=== PATIENT | male | born 1940 | race Caucasian/White ===

== ENCOUNTER 2020-10-06 18:57 | Inpatient (IN) | payer MEDICARE, OTHER ==
[~2020-10-06] VITALS: Ht 170.2 cm; Wt 76.2 kg
--- NOTE | 2020-10-06 19:10 | NUR ---
BLOOD COLLECTED AND SENT TO LAB
--- NOTE | 2020-10-06 19:10 | NUR ---
PT BIBRA FROM HOME C/O NEAR SYNCOPAL EPISODE WHILE EATING DINNER. PER EMS, +ORTHOSTATIC. PT AAOX3, VSS, RESPIRATIONS EVEN AND UNLABORED ON RA W/ NAD NOTED. PT CONNECTED TO THE SUBGRADE ROLLER OPERATOR AND POX
[2020-10-06] MEDS ORDERED: IV NS 0.9% 1,000 ML BAG IV ONE (19:30)
[2020-10-06 19:44] LABS: BASOPHILS % (AUTO) 1.3 % (0.0-2.0); EOSINOPHILS % (AUTO) 4.7 % (0.0-6.0); HEMATOCRIT 35 % (39-51); LYMPHOCYTES # (AUTO) 0.6 /CMM (0.8-4.8); LYMPHOCYTES % (AUTO) 16.3 % (20.0-44.0); MEAN CORPUSCULAR HGB CONC 32 g/dl (31.0-36.0); MEAN CORPUSCULAR VOLUME 84 fL (80-96); MONOCYTES # (AUTO) 0.3 /CMM (0.1-1.30); MONOCYTES % (AUTO) 7.7 % (2.0-12.0); NEUTROPHILS # (AUTO) 2.5 /CMM (1.8-8.9); PLATELET COUNT (AUTO) 141 /CMM (150-450); RED BLOOD CELL COUNT(AUTO) 4.15 MIL/uL (4.5-6.0); WHITE BLOOD COUNT (AUTO) 3.6 K/uL (4.3-11.0)
[2020-10-06 19:51] LABS: CALCIUM, SERUM 8.5 mg/dL (8.5-10.1); CARBON DIOXIDE 31 mmol/L (21-32); CHLORIDE 104 mmol/L (98-107); CREATININE 1.4 mg/dL (0.6-1.3); GLUCOSE 126 mg/dL (74-106); POTASSIUM 3.5 mmol/L (3.5-5.1); SODIUM SERUM 141 mmol/L (136-145); UREA NITROGEN, BLOOD 27 mg/dL (7-18)
[2020-10-06 19:57] LABS: ALANINE AMINOTRANSFERASE 26 U/L (12-78); ALBUMIN 3.5 g/dL (3.4-5.0); ALKALINE PHOSPHATASE 52 U/L (46-116); ASPARTATE AMINOTRANSFERASE 21 U/L (15-37); BILIRUBIN,DIRECT 0.2 mg/dL (0.0-0.2); BILIRUBIN,TOTAL 0.4 mg/dL (0.2-1.0); TOTAL PROTEIN, SERUM 6.6 g/dL (6.4-8.2)
--- NOTE | 2020-10-06 20:10 | NUR ---
CALLED LAB FOR COVID SWAB
--- NOTE | 2020-10-06 20:25 | NUR ---
DR REZA AT BEDSIDE
--- NOTE | 2020-10-06 20:48 | NUR ---
[facility] CALLED FOR CODE STEMI. FACESHEET AND CLINICALS FAXED.
--- NOTE | 2020-10-06 20:50 | NUR ---
COVID SWAB SENT TO LAB
[2020-10-06] MEDS ORDERED: ASPIRIN 81 MG TAB.CHEW ONE (20:57)
--- NOTE | 2020-10-06 20:57 | NUR ---
CALL BACK FROM [facility]. PER DR LEON NOT STEMI.
[2020-10-06] MEDS ORDERED: ASPIRIN 81 MG TAB.CHEW PO ONE (21:00)
--- NOTE | 2020-10-06 21:14 | NUR ---
rechecked pt wt via bed scale 77.5 kg
--- NOTE | 2020-10-06 21:15 | NUR ---
[facility]. NOT STEMI PER DR HOYOS.
--- NOTE | 2020-10-06 21:20 | NUR ---
PT'S DAUGHTER DAVELEONARDO
[2020-10-06] MEDS ORDERED: ZOLPIDEM TARTRATE 5 MG TABLET PO PRN (22:00)
[2020-10-06] MEDS ORDERED: MAG HYDROX/AL HYDROX/SIMETH 30 ML UDC PO PRN (22:00)
[2020-10-06] MEDS ORDERED: ONDANSETRON HCL/PF 4 MG/2 ML VIAL IVP PRN (22:00)
[2020-10-06] MEDS ORDERED: Z GUARD REMEDY 2 OZ OINT TP PRN (22:00)
[2020-10-06] MEDS ORDERED: ACETAMINOPHEN 325 MG TABLET PO PRN (22:00)
[2020-10-06] MEDS ORDERED: HYDROCODONE/APAP 5/325MG TABLET PO PRN (22:00)
[2020-10-06] MEDS ORDERED: HEPARIN INFUSION/D5W 500 ML IV ONE (22:00)
[2020-10-06] MEDS ORDERED: MAGNESIUM HYDROXIDE 30 ML UDC PO PRN (22:00)
[2020-10-06] MEDS ORDERED: HEPARIN INFUSION/D5W 500 ML IV PRN (22:00)
[2020-10-06] MEDS ORDERED: HEPARIN SODIUM, PORCINE 5000 UNITS/1 ML VIAL IV ONE (22:00)
[2020-10-06] MEDS ORDERED: HEPARIN SODIUM, PORCINE 5000 UNITS/1 ML VIAL ONE (22:01)
--- NOTE | 2020-10-06 22:09 | NUR ---
REPORT GIVEN TO GINA FOR PRERNA
--- NOTE | 2020-10-06 22:37 | NUR ---
DR GONZALEZ AT BEDSIDE FOR EVAL
[2020-10-06 22:55] VITALS: BP 170/63
--- NOTE | 2020-10-06 22:55 | NUR ---
TEST CARRIER NOTE: Received report from Darcy. Patient was transferred to the unit via [facility]. Patient on 2L Oxygen via nasal canula. Patient breathing unlabored and even. No SOB or acute respiratory distress noted. Patient able to ambulate from [facility] to bed with steady gate. Noted IV access 18 gauge on LAC and 18 gauge RAC. Both IV access patent. Heparin drip infusing on left AC. On hall monitor, sinus rhythm. Introduced patient to room and how to use the call light. Patient able to return demonstrate how to use the call light. Safety precaution in place, bed is in the lowest level, bed wheels are locked, alarm is on, side rails x2 are up, and call light is within reach. Will continue to monitor.
--- NOTE | 2020-10-06 23:05 | NUR ---
PT TRANSFERRED TO ROOM VIA ACLS PROTOCOL
[2020-10-07] VITALS (32 sets, daily range): BP systolic 112–178; BP diastolic 38–109
[2020-10-07 04:41] LABS: BASOPHILS % (AUTO) 1.4 % (0.0-2.0); EOSINOPHILS % (AUTO) 5.2 % (0.0-6.0); HEMATOCRIT 33 % (39-51); HEMOGLOBIN 10.9 g/dL (13.5-17.5); LYMPHOCYTES # (AUTO) 0.6 /CMM (0.8-4.8); LYMPHOCYTES % (AUTO) 19.7 % (20.0-44.0); MEAN CORPUSCULAR HGB CONC 33 g/dl (31.0-36.0); MEAN CORPUSCULAR VOLUME 83 fL (80-96); MONOCYTES # (AUTO) 0.3 /CMM (0.1-1.30); MONOCYTES % (AUTO) 9.8 % (2.0-12.0); NEUTROPHILS # (AUTO) 2.1 /CMM (1.8-8.9); NEUTROPHILS % (AUTO) 63.9 % (43.0-81.0); PLATELET COUNT (AUTO) 108 /CMM (150-450); RED BLOOD CELL COUNT(AUTO) 4.05 MIL/uL (4.5-6.0); WHITE BLOOD COUNT (AUTO) 3.3 K/uL (4.3-11.0)
[2020-10-07 04:53] LABS: CALCIUM, SERUM 8.4 mg/dL (8.5-10.1); CARBON DIOXIDE 31 mmol/L (21-32); CHLORIDE 107 mmol/L (98-107); GLUCOSE 110 mg/dL (74-106); MAGNESIUM 2.2 mg/dL (1.8-2.4); PHOSPHORUS 4.1 mg/dL (2.5-4.9); POTASSIUM 3.8 mmol/L (3.5-5.1); SODIUM SERUM 143 mmol/L (136-145); UREA NITROGEN, BLOOD 23 mg/dL (7-18)
[2020-10-07 04:56] LABS: CHOLESTEROL 132 mg/dL (<200); HDL CHOLESTEROL 59 mg/dL (40-60); LDL 66 mg/dL (0-99); TRIGLYCERIDES 30 mg/dL (30-150)
--- NOTE | 2020-10-07 05:02 | NUR ---
Awaiting APTT lab result.
--- NOTE | 2020-10-07 05:53 | NUR ---
Received a call from Isi in lab. Isi stated patient aPTT was very high, 134.1. Isi proposed a blood redraw. Made charge aware of the high aPTT value and lab redraw. Lab will redraw blood and give the result as soon as possible.
--- NOTE | 2020-10-07 06:30 | NUR ---
Received call from [place] in lab. Critical lab aPTT 138.8. Stopped heparin in fusion at 0630 and per protocol, stop for 60 minutes. Will endorse lab result and heparin protocol to AM nurse.
--- NOTE | 2020-10-07 06:46 | NUR ---
RN CLOSING NOTE: Patient awake in bed, resting comfortably. Patient shows no signs of SOB or acute respiratory distress. All needs were taken care of. Safety precaution is maintained, bed is in the lowest level, wheels are locked, alarm is on, side rails x2 are up, and call light is within reach. Will endorse to next shift.
--- NOTE | 2020-10-07 07:57 | NUR ---
RN NOTES PATIENT ON HEPARIN DRIP NOW BEING HELD. WILL START HEPARIN AT A RATE OF 900 PER PROTOCOL. NO SIGNS OR SYMPTOMS OF BLEEDING. WILL CONTINUE TO MONITOR CLOSELY.
--- NOTE | 2020-10-07 08:08 | NUR ---
RN NOTES CALL RECEIVED FROM DR. GARCÍA STATING TO DC HEPARIN KEEP PATIENT NPO. PATIENT WILL HAVE A CARDIAC CATH. TODAY.
[2020-10-07] MEDS ORDERED: LIDOCAINE HCL/PF 1% 30 ML SDV ONE (08:17)
[2020-10-07] MEDS ORDERED: IODIXANOL 150 ML IV ONE ×2 (08:17→09:08)
[2020-10-07] MEDS ORDERED: IV NS 0.9% 500 ML IV ONE (08:22)
[2020-10-07] MEDS ORDERED: IV SET PRIMARY PUMP SET 1 EA INFUS.SET MC ONE (08:22)
[2020-10-07] MEDS ORDERED: NITROGLYCERIN ICAR 1,000 MCG/10 ML VIAL ICAR ONE (08:37)
--- NOTE | 2020-10-07 08:40 | NUR ---
LUNCH COOK NOTES PATIENT TRANSFERRED TO FRUIT INSPECTOR IN STABLE CONDITION.
[2020-10-07] MEDS: ATORVASTATIN 10 MG TABLET PO SCH (09:00)
[2020-10-07] MEDS ORDERED: MIDAZOLAM HCL 2 MG/2ML VIAL ONE (09:04)
[2020-10-07] MEDS ORDERED: FENTANYL PF 100MCG/2ML AMPUL ONE (09:04)
[2020-10-07] MEDS ORDERED: ICOS1CAP PO (09:28)
[2020-10-07] MEDS ORDERED: ATOR20TA PO (09:28)
[2020-10-07] MEDS ORDERED: LOSA25TA27 PO (09:28)
[2020-10-07] MEDS ORDERED: TAMS-12 PO (09:28)
[2020-10-07] MEDS ORDERED: GABA-532 PO (09:28)
[2020-10-07] MEDS ORDERED: PLEC3TAB PO (09:28)
[2020-10-07] MEDS ORDERED: DONE5TAB34 PO (09:28)
[2020-10-07] MEDS ORDERED: FURO20TA4 PO (09:28)
[2020-10-07] MEDS ORDERED: DEXL60CA3 PO (09:28)
[2020-10-07] MEDS ORDERED: METO-357 PO (09:28)
[2020-10-07] MEDS ORDERED: HEPARIN SODIUM, PORCINE 1,000 UNIT/ML VIAL ONE ×2 (10:10→10:17)
--- NOTE | 2020-10-07 11:45 | NUR ---
RN NOTES RECEIVED PT FROM CATH LB. PT A/OX4, KIZZY SPEAKING. ON ROOM AIR. NO SOB NOTED. DENIES ANY PAIN. CONNECTED TO MONITOR. RIGHT TR BAND IN PLACE. NO SIGNS OF BLEEDING NOTED. NO CIRCULATORY IMPAIRMENT NOTED. GOOD PALPABLE PULSE NOTED. RIGHT GROIN ASSESSED, ANGIOSEAL ON. NO SIGNS OF BLEEDING NOTED. FEMORAL PULSE NOTED. PT ON BED REST. WILL FOLLOW PROTOCOL. WILL CLOSELY MONITOR
[2020-10-07] MEDS ORDERED: IV NS 0.9% 1,000 ML IV ONE (12:30)
[2020-10-07] MEDS: METOPROLOL TARTRATE 50 MG TABLET PO SCH ×3 (12:43→23:29)
--- NOTE | 2020-10-07 13:45 | NUR ---
RN NOTES RIGHT TR BAND REMOVED. NO BLEEDING NOTED. PALPABLE PULSE NOTED. NO CIRCULATORY IMPAIRMENT NOTED. VS WNL. WILL MONITOR
--- NOTE | 2020-10-07 18:48 | NUR ---
RN CLOSING NOTES NO SIGNIFICANT CHANGE NOTED. VS WNL. NO BLEEDING NOTED. NO SOB NOTED. DENIES ANY PAIN. ALL NEEDS ATTENDED AND MET. KEPT COMFORTABLE. CALL LIGHT WITHIN REACH. WILL ENDORSE FOR CONTINUITY OF CARE
--- NOTE | 2020-10-07 23:00 | NUR ---
GEOSPATIAL ANALYST: WHEN ASLEEP, 02 SAT. SUSTAINED BET. 88-90% FROM BASELINE OF 92% AND ABOVE. PLACED ON 2L 02 VIA NC. WILL CONTINUE TO MONITOR.
[2020-10-08] VITALS (17 sets, daily range): BP systolic 113–168; BP diastolic 47–97
--- NOTE | 2020-10-08 01:50 | NUR ---
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 WHEN IN DEEP SLEEP, HR ALSO GOES IN THE 40s (ON LOPRESSOR 25MG Q6H). OBTAINED STAT EKG WT RESULT OF SR WT PROLONGED AK INTERVAL. PT WOKE UP DURING EKG WT HR BACK IN THE 60s AND TO NSR. NO ACUTE DISTRESS. WILL CONTINUE TO MONITOR.
[2020-10-08 05:44] LABS: BILIRUBIN,URINE NEGATIVE (NEGATIVE); BLOOD, URINE NEGATIVE Ery/uL (NEGATIVE); COLOR,URINE YELLOW (YELLOW); LEUKOCYTE ESTERASE ,URINE NEGATIVE (NEGATIVE); NITRITE, URINE NEGATIVE (NEGATIVE); PROTEIN,URINE NEGATIVE (NEGATIVE); UGLUCOSE NEGATIVE (NEGATIVE); UROBILINOGEN,URINE 0.2 EU/dL (0.2)
[2020-10-08] MEDS: METOPROLOL TARTRATE 50 MG TABLET PO SCH ×3 (05:47→17:11)
[2020-10-08 05:56] LABS: EOSINOPHIL,URINE None Seen
[2020-10-08 06:04] LABS: CREATININE, URINE 59.9 MG/DL (30.0-125.0)
--- NOTE | 2020-10-08 06:10 | NUR ---
CHAIR POST MACHINE OPERATOR: NO SIGNIFICANT PRERNA DURING THE SHIFT. REMAINED A/O X 3. ABLE TO MAKE NEEDS KNOWN. ON 2L 02 VIA NC. NO C/O PAIN, NO SYNCOPAL EPISODE. NO ACTIVE BLEEDING ON RIGHT RADIAL AND RIGHT GROIN SITES. PALPABLE PULSES. SR ON SCIENTIFIC RESEARCH ASSOCIATE. AFEBRILE. SBP IN THE 150S-160s DURING THE SHIFT. ABLE TO VOID ON THE URINAL. BED IN LOWEST POSITION AND LOCKED, BED ALARM ACTIVATED, SIDE RAILS UP X2, CALL LIGHT WITHIN REACH.
--- NOTE | 2020-10-08 07:15 | NUR ---
RN INITIAL NOTES RECEIVED PT A/OX4. ON 02 VIA OR. NO SOB NOTED. DENIES ANY PAIN. IV LINES IN PLACE. PT CONTINENT, USES URINAL. BLE ELEVATED. VS WNL. WILL CONTINUE TO MONITOR
[2020-10-08] MEDS: ATORVASTATIN 10 MG TABLET PO SCH (09:24)
[2020-10-08] MEDS: VALSARTAN 80 MG TABLET PO SCH (10:14)
[2020-10-08 10:34] LABS: IRON, SERUM 77 ug/dl (50-175); TOTAL IRON BINDING CAPACITY 243 ug/dl (250-450)
[2020-10-08 11:03] LABS: FERRITIN 101 ng/mL (8-388)
--- NOTE | 2020-10-08 13:15 | NUR ---
RN NOTES SEEN AND EXAMINED NORMAN HUNG NP. AWARE OF PT'S CURRENT STATUS AND LAB VALUES. POSSIBLE LEXISCAN ON SATURDAY PER DR GARCÍA. PURCHASING/RECEIVING DISCUSSED PLAN OF CARE WITH PT AND PT'S DAUGHTER. WILL CONTINUE TO MONITOR
--- NOTE | 2020-10-08 14:00 | NUR ---
RN NOTES PT REMAINS STABLE. BEDSIDE REPORT GIVEN TO VIKAS GIRON. TOOK OVER PT'S CARE.
[2020-10-08] MEDS: ASPIRIN 81 MG TAB.CHEW PO SCH (14:22)
--- NOTE | 2020-10-08 18:32 | NUR ---
HAIRPIECE STYLIST. PATIENT STABEL AT THIS TIME , PATIENT SATURATION > 95 , NO SIGNS OF ACUTE RESPIRATORY DISTRESS, NO PAIN, NO SOB. PATIENT ALERT AND ORIENTED X 4 PATIENT AT THIS TIME IS RESTING IN BED AND EASILY WOKEN IWTH NAME AND TOUCH PATIENT SPEAKS GERMAN AND HUNGARIAN. PATIENT HAS BATH ROOM PRIV. PATIENT ABLE TO WALK AND STABLE. TRP BAND WAS TAKEN OFF YESTER 1300. BED LOCKED LOWEST POSITION CALL LIGHT WITH IN REACH ALL SAFETY MEASURES IMPLEMENTED PER HOSPITAL POLICY . ANGELYTHER VISITED EARLIER IN THE DAY PATIENT SEEM MUCH HAPPIER WHEN HE SAW HIS DAUGHTER HER PHONE NUMBER [phone]
--- NOTE | 2020-10-08 19:20 | NUR ---
RN NOTE PT AWAKE AND ALERT IN BED X 4. IN SEMI LOPEZ'S POSITION. WITH INDEPENDENT BED MOBILITY, ON 2L OF O2 VIA NC. RESPIRATIONS EVEN AND UNLABORED, DENIES PAIN OR DISCOMFORT, POST REMOVAL OF TRP BAND SITE WITHOUT COMPLICATIONS NOTED. IV LINES FLUSHED AND PATENT. PLAN OF CARE DISCUSSED, CALL LIGHT WITHIN REACH, SAFETY MEASURES IN PLACE, BED LOCKED AND IN LOW POSITION, WILL MONITOR PATIENT
[2020-10-09] VITALS: BP 103/39
--- NOTE | 2020-10-09 00:33 | NUR ---
RN NOTE LOPRESSOR 25MG PO HELD DUE TO LOW BP: 101/38 HR: 62
[2020-10-09 04:00] VITALS: BP 152/43
[2020-10-09] MEDS: METOPROLOL TARTRATE 50 MG TABLET PO SCH ×4 (05:29→18:04)
[2020-10-09 06:19] LABS: BASOPHILS % (AUTO) 0.6 % (0.0-2.0); EOSINOPHILS % (AUTO) 4.7 % (0.0-6.0); HEMATOCRIT 32 % (39-51); HEMOGLOBIN 10.5 g/dL (13.5-17.5); LYMPHOCYTES # (AUTO) 0.7 /CMM (0.8-4.8); LYMPHOCYTES % (AUTO) 15.2 % (20.0-44.0); MEAN CORPUSCULAR HGB CONC 33 g/dl (31.0-36.0); MEAN CORPUSCULAR VOLUME 83 fL (80-96); MONOCYTES # (AUTO) 0.4 /CMM (0.1-1.30); MONOCYTES % (AUTO) 8.3 % (2.0-12.0); NEUTROPHILS # (AUTO) 3.3 /CMM (1.8-8.9); NEUTROPHILS % (AUTO) 71.2 % (43.0-81.0); PLATELET COUNT (AUTO) 118 /CMM (150-450); RED BLOOD CELL COUNT(AUTO) 3.84 MIL/uL (4.5-6.0); WHITE BLOOD COUNT (AUTO) 4.6 K/uL (4.3-11.0)
--- NOTE | 2020-10-09 06:29 | NUR ---
RN NOTE RECEIVED CALL FROM PHARMACY THAT MED RECON NEEDS TO BE DONE BY MD. WILL ENDORSE TO MORNING SHIFT TO FOLLOW UP.
[2020-10-09 06:40] LABS: BILIRUBIN,TOTAL 0.7 mg/dL (0.2-1.0); CALCIUM, SERUM 8.9 mg/dL (8.5-10.1); CREATININE 0.8 mg/dL (0.6-1.3); POTASSIUM 4.3 mmol/L (3.5-5.1); TOTAL PROTEIN, SERUM 5.8 g/dL (6.4-8.2)
--- NOTE | 2020-10-09 06:50 | NUR ---
RN NOTE NO ACUTE CHANGES OBSERVED OVERNIGHT. PT REFUSING O2 AT THIS TIME. ON ROOM AIR AND TOLERATING FINE. RESPIRATIONS EVEN AND UNLABORED. DENIES PAIN OR DISCOMFORT. IV LINES PATENT. ALL NEEDS MET AND ATTENDED TO. WILL ENDORSE TO MORNING RN FOR PRERNA.
--- NOTE | 2020-10-09 07:30 | NUR ---
RN OPENING NOTE: RECEIVED PATIENT IN BED THIS MORNING. PATIENT IS AAOX4, RESPONDS APPROPRIATELY. SATING WELL ON RA AT THIS TIME. SINUS KARAN IN THE 50S NOTED ON THE TELE MONITOR WITH FIRST DEGREE HEART BLOCK. AMBULATORY WITH STEADY GAIT. #18 RAC #22 LFA, C/D/I, FLUSHING WELL, NO SIGNS OF COMPLICATIONS NOTED. SAFETY MEASURES IMPLEMENTED, BED IN LOWEST POSITION, LOCKED, SIDE RAILS UP, CALL LIGHT WITHIN REACH. WILL CONTINUE TO MONITOR PATIENT FOR CHANGES.
[2020-10-09 08:00] VITALS: BP 138/37
--- NOTE | 2020-10-09 08:15 | NUR ---
PATIENT KEEP REMOVING EXECUTIVE VICE PRESIDENT BUSINESS DEVELOPMENT, MADE AWARE.
--- NOTE | 2020-10-09 08:25 | NUR ---
DR. GARCÍA ORDERED OK TO DISCONTINUE TELEMETRY.
[2020-10-09] MEDS: ASPIRIN 81 MG TAB.CHEW PO SCH (08:27)
[2020-10-09] MEDS: ATORVASTATIN 10 MG TABLET PO SCH (08:27)
[2020-10-09] MEDS: VALSARTAN 80 MG TABLET PO SCH (08:28)
--- NOTE | 2020-10-09 13:29 | NUR ---
DR GARCÍA ORDERED STRESS TEST, ORDER PLACED, CONSENT SIGNED AND PLACED IN CHART, NUCLEAR TECH CONTACTED, LEFT. PATIENT WILL BE NPO AFTER DINNER.
--- NOTE | 2020-10-09 13:56 | NUR ---
message left to [phone] regarding lexiscan test for tmrw
[2020-10-09 16:00] VITALS: BP 141/46
--- NOTE | 2020-10-09 19:00 | NUR ---
RN OPENING NOTE RECEIVED PATIENT SITTING ON CHAIR IN HALLWAY ALERT ORIENTED X3 ,WITH FORGETFULNESS, VERBALLY RESPONSIVE UGANDAN SPEAKER ONLY,NO SOB NOT ACUTE DISTRESS NOTED,ON ROOM AIR O2:95% IV SITE IS ON LEFT FOREARM AND RIGHT AC INTACT PATENT FLUSHED,NPO AFTER MIDNIGHT FOR PROCEDURE TOMORROW STRESS TEST, AMBULATORY CONTINENT BOWEL/BLADDER,CONTINUE TO MONITOR.
--- NOTE | 2020-10-09 19:11 | NUR ---
RN CLOSING NOTE: PATIENT IS CURRENTLY IN HALLWAY, SITTING ON CHAIR. NO SIGNS OF ACUTE DISTRESS NOTED AT THIS TIME. NPO AFTER MIDNIGHT, NO CAFFEINE FROM NOW ENDORSED TO PM RN. SAFETY MEASURES IMPLEMENTED, BED IN LOWEST POSITION, LOCKED, SIDE RAILS UP, CALL LIGHT WITHIN REACH. ENDORSED TO VIKAS MENDIETA FOR CONTINUITY OF CARE.
[2020-10-09 20:00] VITALS: BP 157/54
--- NOTE | 2020-10-09 22:31 | NUR ---
RN CLOSING NOTE PATIENT REMAINS IN STABLE CONDITION NOT ACUTE DISTRESS NOTED,NO SOB,ENDORSE KEVIN BEAN FOR CONTINUATION OF CARE.
--- NOTE | 2020-10-09 22:32 | NUR ---
RN NOTES, RECEIVED PATIENT FROM VIKAS MENDIETA FOR CONTINUATION OF CARE,PATIENT IN RESTROOM AT THI TIME, NO S/S OF ANY SOB/PAIN OR ACUTE DISTRESS, WILL CONTINUE TO MONITOR CLOSELY.
[2020-10-10] MEDS: METOPROLOL TARTRATE 50 MG TABLET PO SCH ×2 (00:03→05:41)
[2020-10-10 04:00] VITALS: BP 132/47
--- NOTE | 2020-10-10 06:36 | NUR ---
RN CLOSING NOTE PATIENT AWAKE AMBULATING HIMSELF IN ROOM, ALERT ORIENTED X3, BURKINAN SPEAKER ONLY, AT ROOM AIR, NO SOB/ACUTE DISTRESS NOTED, WITH OPTIMAL O2 SAT LEVEL, IV SITE IS ON LEFT FOREARM AND RIGHT AC BOTH PATENT AND INTACT, NPO SINCE MIDNIGHT FOR MYOCARDIAL STRESS TEST WITH LEXISCAN THIS MORNING, VERBALIZED UNDERSTANDING, 2 S/R OF BED UP FOR REPOSITIONING, CALL LIGHT W/I REACH, NO SIGNIFICANT CHANGE IN CONDITION, WILL ENDORSE CONTINUITY OF CARE TO ONCOMING NURSE.
[2020-10-10 08:00] VITALS: BP 128/82
[2020-10-10] MEDS ORDERED: REGADENOSON 0.4 MG/5 ML DISP.SYRIN IVP ONE (08:00)
--- NOTE | 2020-10-10 08:00 | NUR ---
RN OPENING NOTE RECEIVED PT IN BED. PT BELARUSIAN SPEAKING. PT A/Ox3, RESPONDS YES/NO TO QUESTIONS. PT ON RA SPO2 AT 99%. PER NIGHT RN PT REFUSED TELE MONITOR, WILL TRY TO PLACE ON. SPOKE TO DAUGHTER ON PHONE. PT IS AMBULATORY, SKIN INTACT. PT HAS LFA 22G AND RT AC 18G, BOTH PATENT, FLUSHED AND SALINE LOCKED. PT IS NPO SINCE MIDNIGHT UNTIL STRESS TEST OCCURS. PT SAFETY PRECAUTIONS IN PLACE- BED LOCKED AND IN LOWEST POSITION, CALL LIGHT WITHIN REACH, SR UP x2. WILL CONTINUE TO MONITOR
--- NOTE | 2020-10-10 08:27 | NUR ---
RN NOTE PT BEING TAKEN FOR STRESS TEST AT THIS MOMENT
--- NOTE | 2020-10-10 09:35 | NUR ---
RN NOTE PT HAS RETURNED FROM STRESS TEST IN STABLE CONDITION. PT WILL EAT AND THEN GO BACK FOR 2ND PART OF STRESS TEST. WILL CONTINUE TO MONITOR.
[2020-10-10] MEDS: ASPIRIN 81 MG TAB.CHEW PO SCH (09:56)
[2020-10-10] MEDS: VALSARTAN 80 MG TABLET PO SCH (09:57)
--- NOTE | 2020-10-10 11:21 | NUR ---
RN NOTES PATIENT BACK FROM 2ND PART OF STRESS TEST.
[2020-10-10] MEDS ORDERED: METOPROLOL TARTRATE 25 MG TABLET PO SCH (12:00)
[2020-10-10 16:00] VITALS: BP 121/78
[2020-10-10] MEDS ORDERED: VALS80TA2 PO (16:18)
[2020-10-10] MEDS ORDERED: METO25TA20 PO (16:18)
[2020-10-10] MEDS ORDERED: ASPI-1169 PO (16:18)
--- NOTE | 2020-10-10 17:38 | NUR ---
[facility] NOTES PATIENT DISCHARGE TO HOME TODAY PER MD IN STABLE CONDITION. PROVIDED WITH DC INSTRUCTIONS, MED RECON AND HEALTH TEACHINGS. CD COPY FROM RADIOLOGY PROVIDED WELL. IV ACCESS TO RIGHT AC AND LEFT FOREARM REMOVED, CATHETER TIPS COMPLETE, APPLIED PRESSURE, NO BLEEDING AND DRESSINGS IN PLACE. PATIENT TO FOLLOW UP WITH PCP IN 1 WEEK AND WILL MAKE OWN APPOINTMENT. INSTRUCTIONS PROVIDED TO DAUGHTER GUILLE REGARDING [facility] AT [address] [place] [address] FOR MEDICINE WHOLESALE AND RETAIL MERCHANT. ALL BELONGINGS CHECKED AND RETURNED. ALL PAPER WORKS SIGNED. PATIENT AMBULATED AND ACCOMPANIED TO [facility] BY YAZAN REID AND TO GO HOME VIA PRIVATE CAR BY DAUGHTER.
[2020-10-10] MEDS ORDERED: ATORVASTATIN 10 MG TABLET PO SCH (22:00)
[2020-10-11] MEDS ORDERED: DONEPEZIL 5 MG TABLET PO SCH (09:00)
== END 2020-10-10 17:38 | disposition home or self-care (01) | DRG 280 ==
LOC: ER 19:18 → TELE 21:45 → ICU 10-07 11:46 → TELE1 10-08 14:53 → MEDSG1 10-09 08:24
PROVIDERS: ADMIT Family Medicine; ATTEND Nurse Practitioner Acute Care
PROC: 4A023N7 Measurement of Cardiac Sampling and Pressure, Left Heart, Percutaneous Approach (ICD-10-PCS; principal; 2020-10-06)
PROC: B211YZZ Fluoroscopy of Multiple Coronary Arteries using Other Contrast (ICD-10-PCS; 2020-10-06)
PROC: B215YZZ Fluoroscopy of Left Heart using Other Contrast (ICD-10-PCS; 2020-10-06)
DX: I21.4 Non-ST elevation (NSTEMI) myocardial infarction (principal); N17.0 Acute kidney failure with tubular necrosis; I50.33 Acute on chronic diastolic (congestive) heart failure; I47.2 Ventricular tachycardia; I13.0 Hypertensive heart and chronic kidney disease with heart failure and stage 1 through stage 4 chronic kidney disease, or unspecified chronic kidney disease; G91.2 (Idiopathic) normal pressure hydrocephalus; D64.9 Anemia, unspecified; N18.9 Chronic kidney disease, unspecified; E78.5 Hyperlipidemia, unspecified; D63.8 Anemia in other chronic diseases classified elsewhere; I67.2 Cerebral atherosclerosis; Z87.891 Personal history of nicotine dependence; Z82.3 Family history of stroke
CPT/HCPCS: 36415; 70450-TC; 71045-TC; 80048-TC; 80053-TC; 80061-TC; 80076-TC; 81001; 82570-TC; 82728-TC; 83540-TC; 83605-TC; 83735-TC; 83880; 84100-TC; 84155-TC; 84300-TC; 84484-TC; 85025-TC; 85610-TC; 85730-TC; 87040-TC; 87081-TC; 93307-TC; A6253; A9502; C1753; C1769; C1887; C1894; C9803; G0378; G0500; J1644; J2250; J2785; J3010; J3490; J7030; J7040; Q9967